=== PATIENT | male | born 2000 | race Caucasian/White ===

== ENCOUNTER 2020-08-31 16:37 | Emergency (ER) | payer OTHER, SELFPAY ==
--- NOTE | 2020-08-31 16:42 | ED.UPPEXIN ---
HPI - Extremity Injury (Upper) General Chief Complaint: Extremity Injury, Upper Stated Complaint: INJURED R HAND Time Seen by Provider: 08/31/20 16:42 Source: patient and RN notes reviewed History of Present Illness HPI narrative: Patient is a 20-year-old male that presents the urgent care with complaints of right hand pain. Patient states that he slammed his right hand down on something in the kitchen and believes he may have fractured his hand/wrist. Patient states that he was trying to open a can and slammed his wrist down on the countertop. States that it occurred at approximately 11 AM. Patient has used ice but has not taken anything [id number] for his pain. No other acute complaints. No acute distress noted. Patient aware of the plan of care. Some parts of this dictation were generated by voice recognition software and may contain typographical and/or grammatical inaccuracies. Related Data Home Medications Medication Instructions Recorded Confirmed No Home Medications 08/31/20 08/31/20 Allergies Allergy/AdvReac Type Severity Reaction Status Date / Time No Known Allergies Allergy Verified 08/31/20 16:44 Review of Systems Review of Systems: Narrative: CONSTITUTIONAL: Denies fever, chills, or sweats. EYES: Denies visual changes, redness, or discharge. ENT: Denies rhinorrhea, congestion, sore throat, or otalgia. CARDIOVASCULAR: Denies chest pain, palpitations, or edema. RESPIRATORY: Denies cough or dyspnea. GASTROINTESTINAL: Denies abdominal pain, nausea, vomiting, or diarrhea. GENITOURINARY: Denies dysuria or hematuria. SKIN: Denies rash or itching. MUSCULOSKELETAL: Reports of right hand/wrist pain NEUROLOGIC: Denies headache, numbness, or weakness. All other systems reviewed are negative, except as documented in HPI. [facility] Family History Family History (Updated 02/08/17 @ 07:54 by DOCTOR UNKNOWN) Mother Asthma Social History Social History Smoking status: Never smoker Alcohol intake: never Comments At the time of my signature, I reviewed and agree with the nursing past medical, surgical, social, and family history. There is no relevant family history pertinent to the patient complaint. Exam Narrative: Exam Narrative: GENERAL: This is a well-nourished, well-developed patient, in no apparent distress. HEAD: normocephalic, atraumatic. EYES: PERRL. Sclera clear/white. Vision is grossly intact. EARS: External ears normal NOSE: External nose normal with no obvious nasal discharge, nares without redness, no rhinorrhea. THROAT: Mucous membranes moist NECK: Neck supple SKIN: warm, intact with no suspicious lesions or rash, good texture and turgor. NEURO: awake, alert, and oriented to person, place and time. There were no obvious focal neurologic abnormalities. EXTREMITIES: Range of motion to right upper extremity within normal limits. Normal range of motion with flexion, without exacerbated pain. No obvious deformity or injury to the right upper extremity. Positive equal strong pony edger. Positive strong right radial pulse with capillary refill less than 2 seconds. No edema, ecchymosis, erythema to right upper extremity. Course Vital Signs Vital signs: Vital Signs Temperature 97.4 F L 08/31/20 16:44 Pulse Rate 91 08/31/20 16:44 Respiratory Rate 12 08/31/20 16:44 Blood Pressure 140/81 08/31/20 16:44 Pulse Oximetry 99 08/31/20 16:44 Temperature 97.4 F L 08/31/20 16:44 Pulse Rate 91 08/31/20 16:44 Respiratory Rate 12 08/31/20 16:44 Blood Pressure 140/81 08/31/20 16:44 Pulse Oximetry 99 08/31/20 16:44 Reviewed MDM - Extremity Injury (Upper) MDM Narrative Medical decision making narrative: Advised the patient to wear the Nestor wrap as directed for comfort and pain management. Continue ice/Tylenol/ibuprofen as needed for comfort or pain. If you develop any increase in pain associated with any type of deformity or decreased range of motion to the rig
[2020-08-31 16:44] VITALS: BP 140/81; PULSE 91; RESP 12; TEMP 36.3; O2SAT 99
== END 2020-08-31 16:55 | disposition home or self-care (01) ==
PROVIDERS: Emergency Provider Nurse Practitioner Family
DX: S60.211A Contusion of right wrist, initial encounter (principal); W22.8XXA Striking against or struck by other objects, initial encounter
CPT/HCPCS: 99212; G0463